=== PATIENT | male | born 1990 | race Caucasian/White ===

== ENCOUNTER 2022-01-20 14:49 | Emergency (ER) | payer BC, OTHER ==
[~2022-01-20] VITALS: Ht 177.8 cm; Wt 84.0 kg
[2022-01-20 17:15] VITALS: BP 133/96
== END 2022-01-20 15:40 | disposition left against medical advice (07) ==
LOC: ER 14:49
DX: M54.2 Cervicalgia (principal); Z53.21 Procedure and treatment not carried out due to patient leaving prior to being seen by health care provider; V43.52XA Car driver injured in collision with other type car in traffic accident, initial encounter; Y93.89 Activity, other specified; Y92.410 Unspecified street and highway as the place of occurrence of the external cause; Y99.8 Other external cause status